=== PATIENT | female | born 1960 | race Caucasian/White ===

== ENCOUNTER 2021-04-01 20:39 | Emergency (ER) | payer MEDICARE, OTHER ==
[~2021-04-01 20:39] MED LIST: CLEOCIN300 MG PO; CLINDAMYCIN 15150 MG PO; IBUPROFEN800 MG PO; LEVOTHYROXINE125 MCG PO; SYNTHROID125 MCG PO; VENTOLIN HFA IN18 GM INH; VICODIN 10/3251 EACH PO; VITAMIN D5000 UNIT PO
[2021-04-01] MEDS ORDERED: VIBRAMYCIN100 MG PO (23:02)
== END 2021-04-01 23:17 | disposition home or self-care (01) ==
LOC: FER 20:39
DX: S91.332A Puncture wound without foreign body, left foot, initial encounter (principal); E11.9 Type 2 diabetes mellitus without complications; J45.909 Unspecified asthma, uncomplicated; Z23 Encounter for immunization; W26.8XXA Contact with other sharp object(s), not elsewhere classified, initial encounter; Y92.009 Unspecified place in unspecified non-institutional (private) residence as the place of occurrence of the external cause
CPT/HCPCS: 73620; 90471; 90715

== ENCOUNTER 2021-11-16 17:49 | Emergency (ER) | payer MEDICARE, OTHER ==
[~2021-11-16 17:49] MED LIST changes: +VIBRAMYCIN100 MG PO
[2021-11-16 20:19] LABS: BASOPHIL 0.7 % (0-2); EOSINOPHIL 0.8 % (0-5); HCT 42.5 % (37.0-47.0); HGB 14.1 g/dl (12.5-16.0); LYMPHOCYTE 22.7 % (15-48); MCH 29.7 pg (25.0-31.0); MCHC 33.2 g/dL (32.0-36.0); MCV 89.7 fL (78.0-100.0); MONOCYTE 6.9 % (0-12); NEUTROPHIL 68.5 % (41-80); NRBC 0; PLT 293 K/uL (150-400); RBC 4.74 M/uL (4.20-5.40); RDW 12.9 % (11.5-14.0); WBC 13.4 K/uL (4.0-10.5)
[2021-11-16 20:35] LABS: ALBUMIN 3.7 g/dL (3.4-5.0); BILIRUBIN - TOTAL 0.3 mg/dL (0.2-1.0); BUN/CREAT RATIO (CALC) 23.1 RATIO; CREATININE 0.65 mg/dL (0.51-0.95); GLOBULIN (CALCULATION) 4.2 g/dL; POTASSIUM 4.1 mmol/L (3.5-5.1); TOTAL PROTEIN 7.9 g/dL (6.4-8.2)
[2021-11-16 20:59] LABS: BILIRUBIN NEGATIVE (NEGATIVE); BLOOD 3+ Ery/uL (NEGATIVE); CLARITY CLEAR (CLEAR); COLOR YELLOW (YELLOW); GLUCOSE (U) NORMAL (NORMAL); LEUKOCYTES NEGATIVE Leu/uL (NEGATIVE); NITRITE NEGATIVE (NEGATIVE); PROTEIN NEGATIVE (NEGATIVE); SPECIFIC GRAVITY >=1.030 (1.001-1.030); UROBILINOGEN 0.2 mg/dL (0.2-1.0)
[2021-11-16 21:14] LABS: BACTERIA 1+
[2021-11-16 21:15] LABS: URINARY RBC 20-50
== END 2021-11-16 22:15 | disposition home or self-care (01) ==
LOC: FER 17:49
PROVIDERS: Physician Assistant
DX: N13.2 Hydronephrosis with renal and ureteral calculous obstruction (principal); I10 Essential (primary) hypertension; E11.9 Type 2 diabetes mellitus without complications; J45.909 Unspecified asthma, uncomplicated; E03.9 Hypothyroidism, unspecified; Z88.2 Allergy status to sulfonamides; Z88.5 Allergy status to narcotic agent; Z88.1 Allergy status to other antibiotic agents; Z79.84 Long term (current) use of oral hypoglycemic drugs; Z79.899 Other long term (current) drug therapy; Z79.890 Hormone replacement therapy; Z87.891 Personal history of nicotine dependence; Z28.310 Unvaccinated for COVID-19
CPT/HCPCS: 36415; 80053; 81001; 83690; 85025; 96372; J1170; J1885; J2405

== ENCOUNTER 2022-03-20 07:33 | Emergency (ER) | payer MEDICARE, OTHER ==
[2022-03-20 08:22] LABS: BASOPHIL 0.6 % (0-2); EOSINOPHIL 1.2 % (0-5); HGB 14.1 g/dl (12.5-16.0); LYMPHOCYTE 28.7 % (15-48); MCH 30.6 pg (25.0-31.0); MCHC 33.6 g/dL (32.0-36.0); MCV 91.1 fL (78.0-100.0); MONOCYTE 6.6 % (0-12); MPV 11.3 fL (6.0-9.5); NEUTROPHIL 62.4 % (41-80); NRBC 0; PLT 231 K/uL (150-400); RBC 4.61 M/uL (4.20-5.40); RDW 12.7 % (11.5-14.0); WBC 9.3 K/uL (4.0-10.5)
[2022-03-20 08:27] LABS: INR 0.93 (0.9-1.2); PROTHROMBIN TIME 12.2 SECONDS (11.9-13.9); PTT 21.8 SECONDS (24.9-34.6)
[2022-03-20 09:59] LABS: BILIRUBIN NEGATIVE (NEGATIVE); BLOOD NEGATIVE Ery/uL (NEGATIVE); CLARITY CLEAR (CLEAR); COLOR YELLOW (YELLOW); GLUCOSE (U) NORMAL (NORMAL); LEUKOCYTES NEGATIVE Leu/uL (NEGATIVE); NITRITE NEGATIVE (NEGATIVE); PROTEIN NEGATIVE (NEGATIVE); SPECIFIC GRAVITY >=1.030 (1.001-1.030); UROBILINOGEN 0.2 mg/dL (0.2-1.0)
[2022-03-20 11:19] LABS: ALBUMIN 3.6 g/dL (3.4-5.0); BILIRUBIN - TOTAL 0.4 mg/dL (0.2-1.0); BUN/CREAT RATIO (CALC) 25.4 RATIO; CREATININE 0.63 mg/dL (0.51-0.95); GLOBULIN (CALCULATION) 3.9 g/dL; POTASSIUM 3.4 mmol/L (3.5-5.1); TOTAL PROTEIN 7.5 g/dL (6.4-8.2)
[2022-03-20] MEDS ORDERED: ANTIVERT25 MG PO (13:46)
== END 2022-03-20 14:05 | disposition home or self-care (01) ==
LOC: FER 07:33
PROVIDERS: Emergency Medicine
DX: R42 Dizziness and giddiness (principal); R94.6 Abnormal results of thyroid function studies; E11.9 Type 2 diabetes mellitus without complications; I10 Essential (primary) hypertension; J45.909 Unspecified asthma, uncomplicated; E03.9 Hypothyroidism, unspecified; E66.01 Morbid (severe) obesity due to excess calories; Z28.310 Unvaccinated for COVID-19; Z88.0 Allergy status to penicillin; Z88.1 Allergy status to other antibiotic agents; Z88.2 Allergy status to sulfonamides; Z88.5 Allergy status to narcotic agent; Z79.84 Long term (current) use of oral hypoglycemic drugs; Z79.899 Other long term (current) drug therapy
CPT/HCPCS: 36415; 70450; 70551; 71045; 80053; 80061; 81003; 83690; 84443; 84484; 85025; 85610; 85730; 93005; J2405